=== PATIENT | male | born 1980 | race Caucasian/White ===

== ENCOUNTER 2023-08-04 13:02 | Emergency (ER) | payer BC, SELFPAY ==
--- NOTE | ~2023-08-04 | CT_ITS ---
CT of the Abdomen and Pelvis: Indication: Abdominal pain Technique: 2.5 mm axial scans were obtained through the abdomen and pelvis following intravenous adm inistration of 100 cc of Omnipaque 350. Dose reduction technique was used on this scan by utilizing a utomated exposure control and iterative reconstruction technique. The dose-length product (DLP) was 1 683.84 mGy-cm. Findings: Scans through the lung bases are unremarkable. The liver, spleen, pancreas, adrenals and kidneys are within normal limits. Multiple calcified gallst ones are present. No evidence of aortic aneurysm. No lymphadenopathy. There is wall thickening with extensive pericolonic inflammatory stranding at the mid to distal sigmo id colon, most compatible with acute diverticulitis. No abscess or free air seen. No bowel obstructio n evident. Images through the pelvis were performed. Urinary bladder unremarkable. No pelvic mass seen. No ascit es. Impression: Acute sigmoid diverticulitis, as detailed above. No abscess or free air. Cholelithiasis. Reviewed, dictated and finalized at [facility]. Impression: Acute sigmoid diverticulitis, as detailed above. No abscess or free air. Cholelithiasis.
[2023-08-04 13:07] VITALS: BP 156/91; PULSE 100; RESP 16; TEMP 36.5; O2SAT 100
[2023-08-04 13:39] LABS: Basophils Absolute Auto 0.1 K/mm3 (0.0-0.1); Basophils Percent Auto 0.7 % (0.2-1.2); Eosinophils Absolute Auto 0.4 K/mm3 (0-0.3); Eosinophils Percent Auto 3.4 % (0-4.4); Hematocrit 48.5 % (42.0-52.0); Hemoglobin 15.8 g/dL (14.0-18.0); Immature Granulocyte Absolute 0.06 K/mm3 (0.00-0.031); Immature Granulocyte Percent A 0.5 % (0-0.5); Lymphocytes Absolute Auto 1.29 K/mm3 (0.9-3.2); Lymphocytes Percent Auto 9.9 % (18.3-44.2); Mean Corpuscular HGB Conc 32.6 g/dl (32-36); Mean Corpuscular Volume 92.2 fl (80-100); Mean Platelet Volume 9.7 fl (7.4-10.4); Monocytes Absolute Auto 1.3 K/mm3 (0.1-0.6); Monocytes Percent Auto 9.9 % (2.6-8.5); Neutrophils Absolute Auto 9.9 K/mm3 (1.3-6.7); Neutrophils Percent Auto 75.6 % (45.5-73.1); Platelet Count Result 265 k/mm3 (150-375); Red Blood Count 5.26 M/mm3 (4.6-6.20); Red Cell Distribution Width 13.3 % (11.5-14.5)
[2023-08-04 13:49] LABS: Appearance Urine Clear (Clear); Bacteria Urine None Seen /hpf; Bilirubin Urine Negative (Negative); Blood Urine 1+ (Negative); Color Urine Yellow (Yellow); Glucose Urine UA Negative (Negative); Ketones Urine Negative (Negative); Leukocyte Esterase Ur Negative LEU/UL (Negative); Nitrate Urine Negative (Negative); Non Pathogenic Casts 0-2; Protein Urine Negative (Negative); Specific Grav Ur 1.026 (1.001-1.035); Squamous Epithelial Cell Urine None Seen /hpf (Few); WBC Urine 0-5 /hpf (0-3)
[2023-08-04 13:50] LABS: Alanine Aminotransferase 20 U/L (6-50); Albumin Level 4.5 g/dL (3.5-5.1); Alkaline Phosphatase 55 U/L (38-126); Anion Gap 6 mmol/L (4-12); Aspartate Amino Transferase 21 U/L (17-59); Bilirubin,Total 0.8 mg/dL (0.2-1.3); Blood Urea Nitrogen 19 mg/dL (9-20); Calcium 9.7 mg/dL (8.4-10.2); Carbon Dioxide 26 mmol/L (22-30); Chloride 108 mmol/L (98-107); Estimated CRCL calculation 121 ml/min; Estimated Glomerular Filt Rate > 60; Glucose 94 mg/dL (65-110); Lactic Acid Reflex 0.9 mmol/L (0.7-2.0); Lipase 118 U/L (23-300); Sodium 140 mmol/L (137-145)
[2023-08-04 13:55] LABS: Add Urine Microscopic? YES
--- NOTE | 2023-08-04 13:59 | ED.ABDPAIN ---
HPI - Abdominal Pain General Chief Complaint: Abdominal Pain Stated Complaint: abdominal pain/fever Time Seen by Provider: 08/04/23 13:34 History of Present Illness HPI narrative: This is a 42-year-old male, with no significant past medical history, presents emergency department complaining of lower abdominal pain for the past 4 days. Patient describes the pain as sharp and intermittent, at baseline 3/10 and at maximum 10/10. He states he has had 1 episode of pain like this before with that worsened and resolved without intervention. He states he is able to pass gas and stool without blood. He denies vomiting though has some nausea that improved with over the counter soft treatment. He has no other complaints at this time. Related Data Allergies Allergy/AdvReac Type Severity Reaction Status Date / Time No Known Allergies Allergy Verified 08/04/23 13:28 Review of Systems Review of Systems: All systems reviewed & are unremarkable except as noted in HPI and below (HPI) PMFSH Family History Family History Father Throat cancer Mother Breast cancer Social History Social History Smoking status: Current every day smoker Tobacco type: e-cigarettes/vaping Alcohol intake: never Substance use: never Substance use type: does not use Do You Feel Safe in your Home?: Yes Lack of Transportation: No Lack of Food: Never True Current Housing: I Have Housing Concerned About Future Housing: No Difficulty Paying Gas/Electric Bills: No Difficulty Paying for Meds: No Currently Unemployed: No Education: Trade/Vocational Certificate Difficulty w/ Childcare or Family Care: No Living arrangements: with family Occupation/Education: occupation Gender identity (if verbalized by the patient): Male Sexual Orientation (if Verbalized by the Patient): Straight or Heterosexual Exam Narrative: GENERAL: Well-developed, well-nourished, and in no acute distress. HEAD: Normocephalic, atraumatic. EYES: PERRLA and EOMI. CHEST: Clear to auscultation. No respiratory distress. No wheezes rales or rhonchi HEART: Regular rate and rhythm. No murmur heard. Normal peripheral pulses. ABDOMEN: Soft, tender to palpation in the lower abdomen with passive guarding though no rebound, nondistended, normal active bowel sounds. EXTREMITIES: Normal range of motion. No edema. SKIN: Warm, dry, no rash. NEURO: Alert and oriented x3. No focal deficit. Moving all 4 limbs spontaneously PSYCH: Normal mood and affect. Course Course Emergency Course: 14:45 - CBC demonstrates elevated white blood cell count of 13 with neutrophils of 75.6%. Chemistries demonstrate slightly elevated chloride of 108 but otherwise unremarkable. UA demonstrates mild hematuria with RBCs of 11-20. CT abdomen pelvis demonstrates wall thickening with extensive pericolonic inflammatory stranding at the mid to distal sigmoid colon, most compatible with acute diverticulitis. I discussed these findings with the patient and discussed treatment options including admission for IV antibiotics (considering the extent of colon involvement) verses oral antibiotics and outpatient follow-up. The patient prefers to be discharged. He politely declined narcotic pain medications. Discussed return and emergency precautions including signs/symptoms of acute abdomen intractable vomiting. The patient voiced understanding and agreement with the plan. All questions answered to his satisfaction. Vital Signs Vital signs: Vital Signs Temperature 97.7 F 08/04/23 13:07 Pulse Rate 100 08/04/23 13:07 Respiratory Rate 16 08/04/23 13:07 Blood Pressure 156/91 H 08/04/23 13:07 Pulse Oximetry 100 08/04/23 13:07 Temperature 97.7 F 08/04/23 13:07 Pulse Rate 64 08/04/23 14:30 Respiratory Rate 18 08/04/23 14:30 Blood Pressure 146/77 H 08/04/23 14:30 Pulse
[2023-08-04] MEDS: ACETAMINOPHEN 500 MG TABLET 1000 MG PO (14:21)
[2023-08-04] MEDS: SODIUM CHLORIDE 0.9% IV 1,000 ML 999 ML IV CONT (14:21)
[2023-08-04] MEDS: ONDANSETRON INJ 4 MG/2 ML VIAL IV PUSH (14:21)
[2023-08-04 14:30] VITALS: BP 146/77; PULSE 64; RESP 18; O2SAT 97
== END 2023-08-04 14:58 | disposition home or self-care (01) ==
PROVIDERS: Emergency Medicine; Emergency Provider Preventive Medicine Aerospace Medicine; PCP Family Medicine
DX: K57.32 Diverticulitis of large intestine without perforation or abscess without bleeding (principal); K80.20 Calculus of gallbladder without cholecystitis without obstruction; F17.290 Nicotine dependence, other tobacco product, uncomplicated
CPT/HCPCS: 36415; 74177; 80053; 81001; 83605; 83690; 85025; 96374; 99284; A9270; J2405; J7030; Q9967

== ENCOUNTER 2023-08-10 14:39 | Emergency (ER) | payer BC, SELFPAY ==
--- NOTE | ~2023-08-10 | CT_ITS ---
EXAMINATION: CT abdomen pelvis wo con DATE: 08/10/2023 16:32 INDICATION: Left lower quadrant abdominal pain. TECHNIQUE: Computed tomography (CT) of the abdomen and pelvis was performed without intravenous contr ast. Automated exposure control and iterative reconstruction technique were employed. The dose-length product was 1449.87 mGy-cm. COMPARISON: CT abdomen and pelvis 08/04/2023 FINDINGS: The visualized portions of the lung bases are clear without pneumonia or pleural effusion. The heart size is normal. No pericardial effusion. The liver and spleen are normal. There are gallsto emma in the gallbladder. Gallbladder distention is likely secondary to fasting. The pancreas, adrenal glands, and kidneys are normal. There is no urolithiasis. There are scattered diverticula in the colo n. There is wall thickening of the sigmoid colon with surrounding fat stranding, consistent with dive rticulitis. There are no dilated loops of bowel. The appendix is normal. There are no pathologically enlarged lymph nodes. There is no free intraperitoneal fluid. There is mild chronic anterior wedging of multiple thoracic vertebral bodies. There is severe thoracic spondylosis and mild lumbar spondylos is. IMPRESSION: 1. Stable sigmoid diverticulitis. No perforation or abscess. Reviewed, dictated and finalized at location E.
[2023-08-10 14:41] VITALS: BP 158/89; PULSE 97; RESP 18; TEMP 36.5; O2SAT 99
--- NOTE | 2023-08-10 15:54 | ED.RECABL ---
HPI - Recheck/Abnormal Lab/Rx General Chief Complaint: Abdominal Pain Stated Complaint: ABN labs Time Seen by Provider: 08/10/23 15:35 History of Present Illness HPI narrative: 42-year-old male presents to the emergency room for evaluation of diverticulitis. Patient was here 5 days ago for left lower quadrant abdominal pain, he he was diagnosed with uncomplicated diverticulitis and sent home with Christinaro and Flagrosemary. Patient follow-up with his primary care doctor 2 days ago and was told that if his WBC count was greater than 13 he needed to come straight to the emergency room for IV antibiotics. Patient's WBC count was 12.8, and he was still instructed to come here to the ER for further evaluation. Patient states that his pain has improved significantly, and is taking oral fluids and food. Related Data Allergies Allergy/AdvReac Type Severity Reaction Status Date / Time No Known Allergies Allergy Verified 08/09/23 10:07 Review of Systems Review of Systems: ROS unremarkable except for stated in the HPI [facility] Family History Family History Father Throat cancer Mother Breast cancer Social History Social History Smoking status: Current every day smoker Tobacco type: e-cigarettes/vaping Alcohol intake: never Substance use: never Substance use type: does not use Do You Feel Safe in your Home?: Yes Lack of Transportation: No Lack of Food: Never True Current Housing: I Have Housing Concerned About Future Housing: No Difficulty Paying Gas/Electric Bills: No Difficulty Paying for Meds: No Currently Unemployed: No Education: Trade/Vocational Certificate Difficulty w/ Childcare or Family Care: No Living arrangements: with family Occupation/Education: occupation Gender identity (if verbalized by the patient): Male Sexual Orientation (if Verbalized by the Patient): Straight or Heterosexual Exam Narrative: GENERAL: Well-appearing, well-nourished, no physical limitations, and in no acute distress. HEAD: Normocephalic, atraumatic. EYES: Conjunctivae normal, PERRLA and EOMI. CHEST: Clear to auscultation. No respiratory distress. No wheezes rales or rhonchi. HEART: Regular rate and rhythm. No murmur heard. Normal peripheral pulses. ABDOMEN: Soft, LLQ tenderness, nondistended, normal active bowel sounds. BACK: No CVA tenderness EXTREMITIES: Normal range of motion. No edema. No clubbing or cyanosis SKIN: Warm, dry, no rash. No noted wounds NEURO: No focal deficits. Alert and oriented x3. MAEW. CN's II-XI intact bilaterally, normal gait PSYCH: Cooperative. Normal mood and affect. Course Vital Signs Vital signs: Vital Signs Temperature 36.5 C 08/10/23 14:41 Pulse Rate 97 08/10/23 14:41 Respiratory Rate 18 08/10/23 14:41 Blood Pressure 158/89 H 08/10/23 14:41 Pulse Oximetry 99 08/10/23 14:41 Oxygen Delivery Room Air 08/10/23 14:41 Temperature 36.5 C 08/10/23 14:41 Pulse Rate 97 08/10/23 14:41 Respiratory Rate 18 08/10/23 14:41 Blood Pressure 158/89 H 08/10/23 14:41 Pulse Oximetry 99 08/10/23 14:41 Oxygen Delivery Room Air 08/10/23 14:41 MDM - Recheck/Abnormal Lab/Rx Lab Data 08/10/23 15:56 08/10/23 15:56 Labs: Lab Results 08/10/23 08/10/23 Range/Units 15:56 16:20 WBC 12.8 H (4.5-10.0) K/mm3 RBC 4.36 L (4.6-6.20) M/mm3 Hgb 13.2 L (14.0-18.0) g/dL Hct 39.7 L (42.0-52.0) % MCV 91.1 (80-100) fl MCH 30.3 (26-34) pg MCHC 33.2 (32-36) g/dl RDW 13.4 (11.5-14.5) % Plt Count 360 (150-375) k/mm3 MPV 8.8 (7.4-10.4) fl Immature Gran % (Auto) 0.8 H (0-0.5) % Neut % (Auto) 74.0 H (45.5-73.1) % Lymph % (Auto) 12.5 L (18.3-44.2) % Ford % (Auto) 8.8 H (2.6-8.5) % Eos % (Auto) 3.3 (0-4.4) % Baso % (Auto) 0.6 (0.2-1.2) % Lymph # (Auto)
[2023-08-10 16:01] LABS: Basophils Absolute Auto 0.1 K/mm3 (0.0-0.1); Basophils Percent Auto 0.6 % (0.2-1.2); Eosinophils Absolute Auto 0.4 K/mm3 (0-0.3); Eosinophils Percent Auto 3.3 % (0-4.4); Hematocrit 39.7 % (42.0-52.0); Hemoglobin 13.2 g/dL (14.0-18.0); Immature Granulocyte Percent A 0.8 % (0-0.5); Lymphocytes Percent Auto 12.5 % (18.3-44.2); Mean Corpuscular HGB Conc 33.2 g/dl (32-36); Mean Corpuscular Hemoglobin 30.3 pg (26-34); Mean Corpuscular Volume 91.1 fl (80-100); Mean Platelet Volume 8.8 fl (7.4-10.4); Monocytes Absolute Auto 1.1 K/mm3 (0.1-0.6); Monocytes Percent Auto 8.8 % (2.6-8.5); Neutrophils Absolute Auto 9.5 K/mm3 (1.3-6.7); Platelet Count Result 360 k/mm3 (150-375); Red Blood Count 4.36 M/mm3 (4.6-6.20); Red Cell Distribution Width 13.4 % (11.5-14.5); White Blood Count 12.8 K/mm3 (4.5-10.0)
[2023-08-10 16:14] LABS: Alanine Aminotransferase 18 U/L (6-50); Albumin Level 3.9 g/dL (3.5-5.1); Alkaline Phosphatase 48 U/L (38-126); Anion Gap 5 mmol/L (4-12); Aspartate Amino Transferase 20 U/L (17-59); Bilirubin,Total 0.4 mg/dL (0.2-1.3); Blood Urea Nitrogen 17 mg/dL (9-20); Calcium 8.9 mg/dL (8.4-10.2); Carbon Dioxide 29 mmol/L (22-30); Chloride 102 mmol/L (98-107); Estimated CRCL calculation 121 ml/min; Estimated Glomerular Filt Rate > 60; Glucose 109 mg/dL (65-110); Potassium 4.2 mmol/L (3.4-5.0); Sodium 136 mmol/L (137-145)
[2023-08-10 17:02] VITALS: BP 142/80; PULSE 80; RESP 16; TEMP 36.6; O2SAT 100
[2023-08-10 17:12] LABS: Lactic Acid Reflex < 0.5 mmol/L (0.7-2.0)
== END 2023-08-10 17:07 | disposition home or self-care (01) ==
PROVIDERS: Emergency Provider Nurse Practitioner Family; PCP Family Medicine
DX: K57.32 Diverticulitis of large intestine without perforation or abscess without bleeding (principal); F17.290 Nicotine dependence, other tobacco product, uncomplicated
CPT/HCPCS: 36415; 74176; 80053; 83605; 85025; 99284

== ENCOUNTER 2024-01-08 00:52 | Day surgery (SDC) | payer BC, SELFPAY ==
[2023-12-19 15:30] VITALS: BMI 37.0
[2024-01-08 09:51] VITALS: BP 134/80; PULSE 92; RESP 18; TEMP 36.2; O2SAT 99
--- NOTE | 2024-01-08 09:58 | P.PNAN_ITS ---
Anes - Initial Pre Proc Eval Procedure: Operation Date: 01/08/24 11:00 Proposed Procedures p Colonoscopy - Jordan Fernández MD Date/Time: 01/08/24 09:58 Surgeon: Jordan Fernández MD Pre Op Diagnosis: Diverticulitis, diarrhea Patient Data Age: 43 Gender: M Height: 1.75 m Weight: 119.2 kg Last Vital Signs Temp 36.2 C L 01/08/24 09:51 Pulse 92 01/08/24 09:51 Resp 18 01/08/24 09:51 BP 134/80 01/08/24 09:51 Pulse Ox 99 01/08/24 09:51 O2 Del Method Room Air 01/08/24 09:51 Allergies Allergy/AdvReac Type Severity Reaction Status Date / Time No Known Allergies Allergy Verified 01/08/24 09:51 Home Medications Medication Instructions Recorded Confirmed Type hydrocodone 7.5 mg-acetaminophen 1 tablet PO Q4H PRN pain #40 tabs 08/09/23 01/08/24 Rx 325 mg tablet ondansetron 4 mg disintegrating 4 mg PO Q6H PRN nausea and 08/09/23 01/08/24 Rx tablet vomiting #30 tabs dicyclomine 10 mg capsule 10 mg PO QID PRN stomach cramps 12/19/23 01/08/24 History Patient hx anesthesia problems: none Family hx anesthesia problems: none Results Review: All pre-operative results and documents have been reviewed as part of the pre- operative evaluation. [facility] Past Medical History Medical History (Updated 01/08/24 @ 09:58 by Christopher Maurer MD) Obesity Family History Family History Father Throat cancer Mother Breast cancer Social History Social History Smoking status: Current every day smoker Tobacco type: e-cigarettes/vaping Alcohol intake: never Substance use: never Substance use type: does not use Do You Feel Safe in your Home?: Yes Lack of Transportation: No Lack of Food: Never True Current Housing: I Have Housing Concerned About Future Housing: No Difficulty Paying Gas/Electric Bills: No Difficulty Paying for Meds: No Currently Unemployed: No Education: Trade/Vocational Certificate Difficulty w/ Childcare or Family Care: No Living arrangements: with family Occupation/Education: occupation Gender identity (if verbalized by the patient): Male Sexual Orientation (if Verbalized by the Patient): Straight or Heterosexual Spiritual care concerns: No Anes - Eval Final PreProcedure Day of Procedure 01/08/24 09:58 Patient weight: obese Heart: regular rate and rhythm Lungs: clear to auscultation Airway: Mallampati scale class II Neurological: alert and oriented Last oral intake: >/= 8 hours ASA classification: II Emergent: no Anesthetic plan: proceed Anesthesia type and monitoring: general GIVS and standard monitoring Results Review: All pre-operative results and documents have been reviewed as part of the pre- operative evaluation. Informed Consent: The patient's anesthetic plan and its attendant risks and benefits were discussed with the patient/family/POA. Questions were solicited and answers provided to the satisfaction of the patient/family/POA.
[2024-01-08] MEDS: LACTATED RINGERS 1,000 ML 150 ML IV CONT (10:02)
--- NOTE | 2024-01-08 10:43 | P.HP_ITS ---
History of Present Illness History of Present Illness Consent: Risks, benefits, and alternatives have been discussed and questions answered. Patient agrees to proceed with procedure. Chief complaint: Diverticulitis, diarrhea Narrative: Christopher Giron is a 43 year old male with h/o diverticulitis, now asymptomatic, never had colonoscopy Review of Systems Review of Systems: All systems reviewed & are unremarkable except as noted in HPI and below PMFSH Past Medical History Medical History (Updated 01/08/24 @ 10:43 by Jordan Fernández MD) History of diverticulitis of colon Obesity Family History Family History Father Throat cancer Mother Breast cancer Social History Social History Smoking status: Current every day smoker Tobacco type: e-cigarettes/vaping Alcohol intake: never Substance use: never Substance use type: does not use Do You Feel Safe in your Home?: Yes Lack of Transportation: No Lack of Food: Never True Current Housing: I Have Housing Concerned About Future Housing: No Difficulty Paying Gas/Electric Bills: No Difficulty Paying for Meds: No Currently Unemployed: No Education: Trade/Vocational Certificate Difficulty w/ Childcare or Family Care: No Living arrangements: with family Occupation/Education: occupation Gender identity (if verbalized by the patient): Male Sexual Orientation (if Verbalized by the Patient): Straight or Heterosexual Spiritual care concerns: No Meds Home Medications and Allergies Home Medications Medication Instructions Recorded Confirmed Type hydrocodone 7.5 mg-acetaminophen 1 tablet PO Q4H PRN pain #40 tabs 08/09/23 01/08/24 Rx 325 mg tablet ondansetron 4 mg disintegrating 4 mg PO Q6H PRN nausea and 08/09/23 01/08/24 Rx tablet vomiting #30 tabs dicyclomine 10 mg capsule 10 mg PO QID PRN stomach cramps 12/19/23 01/08/24 His tory Allergies Allergy/AdvReac Type Severity Reaction Status Date / Time No Known Allergies Allergy Verified 01/08/24 09:51 Vital Signs Vital Signs - 24 hr 01/08/24 09:51 Temperature 97.2 F L Pulse Rate 92 Respiratory Rate 18 Blood Pressure 134/80 Pulse Oximetry 99 Oxygen Delivery Room Air Exam Const: General: comfortable and no acute distress HENMT: Face/Nose/Sinus: Normal nares present Eyes: General: appearance normal, both eyes and all related structures Neck: Neck: no JVD Resp: Auscultation: clear to auscultation bilaterally Cardio: Rate: regular rate Rhythm: regular rhythm GI: Inspection: non-distended GI Palp: Yes Soft to palpation Skin: General skin exam: normal color Neuro: General: gait normal Speech: normal speech Extrem: General: normal to inspection Psych: Mental Status: mental status grossly normal Assessment and Plan Assessment and plan (1) History of diverticulitis of colon: Code(s): Z87.19 - Personal history of other diseases of the digestive system Status: Acute Assessment and Plan: colonoscopy
[2024-01-08 11:06] VITALS: BP 102/67; PULSE 88; RESP 24; O2SAT 97
[2024-01-08 11:16] VITALS: BP 106/76; PULSE 82; RESP 16; O2SAT 100
[2024-01-08 11:26] VITALS: BP 121/72; PULSE 81; RESP 19; O2SAT 100
== END 2024-01-08 11:34 | disposition home or self-care (01) ==
PROVIDERS: PCP Family Medicine; Referring Provider Nurse Practitioner Family; Visit Provider Internal Medicine Gastroenterology
PROC: 0DJD8ZZ Inspection of Lower Intestinal Tract, Via Natural or Artificial Opening Endoscopic (ICD-10-PCS; CPT 45378; principal; 2024-01-08 11:00)
DX: Z12.11 Encounter for screening for malignant neoplasm of colon (principal); K63.5 Polyp of colon; K64.8 Other hemorrhoids; K57.30 Diverticulosis of large intestine without perforation or abscess without bleeding; F17.290 Nicotine dependence, other tobacco product, uncomplicated; E66.9 Obesity, unspecified; Z68.38 Body mass index [BMI] 38.0-38.9, adult; Z79.891 Long term (current) use of opiate analgesic; Z87.19 Personal history of other diseases of the digestive system; Z80.3 Family history of malignant neoplasm of breast; Z80.1 Family history of malignant neoplasm of trachea, bronchus and lung
CPT/HCPCS: 45385; 45382; 88305; J2003; J2704; J7120

== ENCOUNTER 2025-01-02 06:54 | Inpatient (IN) | payer BC, SELFPAY ==
--- NOTE | ~2025-01-02 | CT_ITS ---
EXAMINATION: CT abdomen pelvis w con DATE: 01/02/2025 11:35 INDICATION: Abdominal pain TECHNIQUE: Computed tomography (CT) of the abdomen and pelvis was performed with 100 mL Omnipaque-350 intravenous contrast. Automated exposure control and iterative reconstruction technique were employed. The dose-length product was 1401.12 mGy-cm. COMPARISON: 08/10/2023 FINDINGS: Lung bases are clear. Heart size is normal. No pericardial or pleural effusion. Numerous calcified gallstones layering in the dependent aspect of the otherwise normal-appearing gallbladder. Liver is normal. No intra or extra hepatic biliary ductal dilation. Pancreas, spleen, bilateral adrenal glands and kidneys are normal. Mild scattered diverticulosis. Again seen is prominent wall thickening along the sigmoid colon with surrounding inflammatory stranding suspicious for diverticulitis. Minimal likely reactive free fluid at the caudal aspect of the right paracolic gutter. No bowel obstruction. Normal appendix. Bladder is normal. No abscess or free intraperitoneal gas. No pathologically enlarged abdo nic or pelvic lymphadenopathy. Moderate lower thoracic spondylosis with chronic appearing mild anterior wedging at T8 and T9. Mild lumbar spondylosis. IMPRESSION: 1. Similar appearance of prominent wall thickening and surrounding inflammatory stranding at the mid sigmoid colon most suspicious for radiographically uncomplicated diverticulitis. Differential would however also include colon cancer and if not recently performed would recommend follow-up colonoscopy when clinically improved. 2. Cholelithiasis. Reviewed, dictated and finalized at location A. IMPRESSION: 1. Similar appearance of prominent wall thickening and surrounding inflammatory stranding at the mid sigmoid colon most suspicious for radiographically uncomp licated diverticulitis. Differential would however also include colon cancer an d if not recently performed would recommend follow-up colonoscopy when clinical ly improved. 2. Cholelithiasis.
[2025-01-02 07:12] VITALS: BP 145/87; PULSE 111; RESP 18; TEMP 37.1; O2SAT 97
[2025-01-02 08:19] LABS: Alanine Aminotransferase 21 U/L (6-50); Albumin Level 4.2 g/dL (3.5-5.1); Alkaline Phosphatase 40 U/L (38-126); Anion Gap 8 mmol/L (4-12); Aspartate Amino Transferase 43 U/L (17-59); Bilirubin,Total 0.9 mg/dL (0.2-1.3); Blood Urea Nitrogen 17 mg/dL (9-20); Calcium 8.9 mg/dL (8.4-10.2); Carbon Dioxide 25 mmol/L (22-30); Chloride 104 mmol/L (98-107); Estimated Glomerular Filt Rate > 60; Glucose 98 mg/dL (65-110); Lipase 1543 U/L (23-300); Potassium 5.0 mmol/L (3.4-5.0); Sodium 137 mmol/L (137-145); Total Protein 8.3 g/dL (6.3-8.2)
[2025-01-02 08:56] LABS: Hematocrit 47.3 % (42.0-52.0); Hemoglobin 16.0 g/dL (14.0-18.0); Immature Granulocyte Percent A 0.3 % (0-0.5); Lymphocytes Absolute Auto 1.07 K/mm3 (0.9-3.2); Mean Corpuscular HGB Conc 33.8 g/dl (32-36); Mean Corpuscular Hemoglobin 30.9 pg (26-34); Mean Corpuscular Volume 91.3 fl (80-100); Nucleated Red Blood Cells Absolute Auto 0.000 K/mm3 (0.0-0.012); Nucleated Red Blood Cells Perc 0.0 % (0.0-0.2); Platelet Count Result 313 k/mm3 (150-375); Red Blood Count 5.18 M/mm3 (4.6-6.20); White Blood Count 12.4 K/mm3 (4.5-10.0)
[2025-01-02 09:30] VITALS: BP 124/57; PULSE 87; RESP 12; TEMP 36.4; O2SAT 100
--- NOTE | 2025-01-02 11:19 | ED_ITS ---
HPI - General Adult General Chief complaint: Abdominal Pain Stated complaint: Diverticulitis flare up Bilat lower abd pain Time Seen by Provider: 01/02/25 10:44 History of Present Illness HPI narrative: Christopher Giron is a 44-year-old male who presents with reports of having history of diverticulitis frequently. He states that 11 days ago he felt like he was having another diverticulitis flare he went to an urgent care and was started on Cipro and Flagyl which he has been taking since then. He presents today reports that he is feeling much worse increased lower abdominal pain nausea. He states that he is having very little bowel movements and passing mucus bowel movements. 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 12/19/23 01/08/24 Unknown History Allergies Allergy/AdvReac Type Severity Reaction Status Date / Time No Known Allergies Allergy Verified 01/02/25 06:56 Review of Systems 2 Review of Systems: All systems reviewed & are unremarkable except as noted in HPI and below PMFSH Past Medical History Medical History History of diverticulitis of colon Obesity Family History Family History Father Throat cancer Mother Breast cancer Social History Social History Smoking status: Current every day smoker Tobacco type: e-cigarettes/vaping Alcohol intake: never Substance use: never Substance use type: does not use Do You Feel Safe in your Home?: Yes Lack of Transportation: No Lack of Food: Never True Current Housing: I Have Housing Concerned About Future Housing: No Difficulty Paying Gas/Electric Bills: No Difficulty Paying for Meds: No Currently Unemployed: No Education: Trade/Vocational Certificate Difficulty w/ Childcare or Family Care: No Living arrangements: with family Occupation/Education: occupation Gender identity (if verbalized by the patient): Male Sexual Orientation (if Verbalized by the Patient): Straight or Heterosexual Spiritual care concerns: No Exam 2 Narrative: GENERAL: Appears to not feel well, no acute distress. HEAD: Normocephalic, atraumatic. EYES: PERRLA and EOMI. ENT: Nares clear, no rhinorrhea or epistaxis. Mucous membranes moist. Oropharynx without tonsillar hypertrophy exudate or other lesions. Bilateral TMs pearly castellanos nonbulging NECK: Supple. No adenopathy or masses. No carotid bruits or JVD CHEST: Clear to auscultation. No respiratory distress. No wheezes rales or rhonchi HEART: Regular rate and rhythm. No murmur heard. Normal peripheral pulses. ABDOMEN: Soft, nondistended, normal active bowel sounds, positive pain to the right lower quadrant with palpation EXTREMITIES: Normal range of motion. No edema. SKIN: Warm, dry, no rash. NEURO: No focal deficits. Alert and oriented x3. PSYCH: Normal mood and affect. Course Vital Signs Vital signs: Vital Signs Temperature 37.1 C 01/02/25 07:12 Pulse Rate 111 H 01/02/25 07:12 Respiratory Rate 18 01/02/25 07:12 Blood Pressure 145/87 H 01/02/25 07:12 Pulse Oximetry 97 01/02/25 07:12 Oxygen Delivery Room Air 01/02/25 07:12 Temperature 36.2 C L 01/02/25 14:08 Pulse Rate 85 01/02/25 14:08 Respiratory Rate 20 01/02/25 14:08 Blood Pressure 116/69 01/02/25 14:08 Pulse Oximetry 97 01/02/25 14:08 Oxygen Delivery Room Air 01/02/25 07:12 Medical Decision Making [facility] Narrative Medical decision making narrative: 44-year-old male with history of acute diverticulitis he has been on antibiotics for 11 days who presents with having increased lower abdominal pain, nausea and small mucousy bowel movements. On exam he is noted to right lower quadrant pain with palpation, he also states that he she woke up in a sweat but did not think that he had a fever. Concern for acute appendicitis, perforated bowel, acute diverticulitis, small- bowel obstruction Plan to check labs including CT and treat his pain in start IV fluids CBC leukocytosis 12.4, hemodynamically stable CMP unremarkable, CRP 4.7, lipase 1543, lactate 0.6 UA 1+ protein, 1+ ketones CT scan1. Similar appearance of prominent wall thickening and surrounding inflammatory stranding at the mid sigmoid colon most suspicious for radiographically uncomplicated diverticulitis. Differential would however also include colon cancer and if not recently performed would recommend follow-up colonoscopy when clinically improved. 2. Cholelithiasis. With patient being on p.o. antibiotics for 11 days and feeling worse with increased pain and the findings on the CT scan and lab work recommend admitting for IV fluids, pain control and IV antibiotics and further evaluation for the differential the CT scan. I updated patient on the findings he is agreeable to this plan denies anything further at this time. I talked with hospitalist Michelle accepts admission at this time. Medical Records Medical records reviewed: Yes I reviewed the external patient's medical records. Vital Signs Vital Signs: Vital Signs Temperature 37.1 C 01/02/25 07:12 Pulse Rate 111 H 01/02/25 07:12 Respiratory Rate 18 01/02/25 07:12 Blood Pressure 145/87 H 01/02/25 07:12 Pulse Oximetry 97 01/02/25 07:12 Oxygen Delivery Room Air 01/02/25 07:12 Temperature 36.2 C L 01/02/25 14:08 Pulse Rate 85 01/02/25 14:08 Respiratory Rate 20 01/02/25 14:08 Blood Pressure 116/69 01/02/25 14:08 Pulse Oximetry 97 01/02/25 14:08 Oxygen Delivery Room Air 01/02/25 07:12 vitals reviewed Lab Data Lab results reviewed: Yes I reviewed the patient's lab results. 01/02/25 08:47 01/02/25 07:46 Labs: Lab Results 01/02/25 01/02/25 01/02/25 Range/Units 07:46 08:47 10:57 WBC 12.4 H (4.5-10.0) K/mm3 RBC 5.18 (4.6-6.20) M/mm3 Hgb 16.0 (14.0-18.0) g/dL Hct 47.3 (42.0-52.0) % MCV 91.3 (80-100) fl MCH 30.9 (26-34) pg MCHC 33.8 (32-36) g/dl RDW 12.4 (11.5-14.5) % Plt Count 313 (150-375) k/mm3 MPV 8.8 (7.4-10.4) fl Immature Gran % (Auto) 0.3 (0-0.5) % Neut % (Auto) 81.0 H (45.5-73.1) % Lymph % (Auto) 8.6 L (18.3-44.2) % [place] % (Auto) 6.7 (2.6-8.5) % Eos % (Auto) 2.6 (0-4.4) % Baso % (Auto) 0.8 (0.2-1.2) % Lymph # (Auto) 1.07 (0.9-3.2) K/mm3 [place] # (Auto) 0.8 H (0.1-0.6) K/mm3 Eos # (Auto) 0.3 (0-0.3) K/mm3 Baso # (Auto) 0.1 (0.0-0.1) K/mm3 Abs Immat Gran (auto) 0.04 H (0.00-0.031) K/mm3 Absolute Neuts (auto) 10.1 H (1.3-6.7) K/mm3 Absolute Nucleated RBC 0.000 (0.0-0.012) K/mm3 Nucleated RBC % 0.0 (0.0-0.2) % Sodium 137 (137-145) mmol/L Potassium 5.0 (3.4-5.0) mmol/L Chloride 104 (98-107) mmol/L Carbon Dioxide 25 (22-30) mmol/L Anion Gap 8 (4-12) mmol/L BUN 17 (9-20) mg/dL Creatinine 1.05 (0.7-1.3) mg/dL Estim Creat Clear Calc Not Reportable Estimated GFR > 60 (59 - ) Glucose 98 (65-110) mg/dL Calcium 8.9 (8.4-10.2) mg/dL Total Bilirubin 0.9 (0.2-1.3) mg/dL AST 43 (17-59) U/L ALT 21 (6-50) U/L Alkaline Phosphatase 40 (38-126) U/L Total Protein 8.3 H (6.3-8.2) g/dL Albumin 4.2 (3.5-5.1) g/dL Lipase 1543 H (23-300) U/L Urine Color Yellow (Yellow) Urine Appearance Clear (Clear) Urine pH 7.0 (5.0-9.0) Ur Specific [place] 1.028 (1.001-1.035) Urine Protein 1+ H (Negative) mg/dL Urine Glucose (UA) Negative (Negative) mg/dL Urine Ketones 1+ H (Negative) mg/dL Ur Blood (Man) Negative (Negative) Urine Nitrate Negative (Negative) Urine Bilirubin Negative (Negative) Urine Urobilinogen 1.0 (<2.0) mg/dL Add Ur Microanalysis Reviewed Leukocyte Esterase Rfl Negative (Negative) AYSHA/UL Urine RBC 0-2 (0-2) /hpf Urine WBC 0-5 (0-3) /hpf Ur Squamous Epith Cells None seen (Few) /hpf Urine Bacteria None seen /hpf Urine Casts 3-5 Urine Mucus Present /lpf Imaging Data Radiologist's impression: Impressions Abdomen/Pelvis CT 01/02/25 11:49 IMPRESSION: 1. Similar appearance of prominent wall thickening and surrounding inflammatory stranding at the mid sigmoid colon most suspicious for radiographically uncomplicated diverticulitis. Differential would however also include colon cancer and if not recently performed would recommend follow-up colonoscopy when clinically improved. 2. Cholelithiasis. Discharge Plan Discharge Clinical Impression: Diverticulitis, Nausea, Dehydration, Elevated lipase Abdominal pain Qualifiers: Abdominal location: right lower quadrant Qualified Code(s): R10.31 - Right lower quadrant pain Patient Disposition: Still a Patient Condition: Stable
[2025-01-02 11:23] LABS: Add Urine Microscopic? YES; Appearance Urine Clear (Clear); Glucose Urine UA Negative (Negative); Leukocyte Esterase Ur Negative LEU/UL (Negative); Need Manual Microscopic Reviewed; Nitrate Urine Negative (Negative); Specific Grav Ur 1.028 (1.001-1.035)
[2025-01-02] MEDS: SODIUM CHLORIDE 0.9% IV 1,000 ML 999 ML IV CONT (11:23)
[2025-01-02] MEDS: MORPHINE SULFATE (*CRX) 4 MG/ML INJ 2 MG IV PUSH ×2 (11:24→20:20)
[2025-01-02] MEDS: KETOROLAC 30 MG/ML VIAL (*BKC) IV PUSH (11:24)
[2025-01-02] MEDS: FAMOTIDINE 20 MG/2 ML VIAL IV PUSH (11:24)
[2025-01-02] MEDS: ONDANSETRON INJ 4 MG/2 ML VIAL IV PUSH (11:25)
[2025-01-02 11:45] VITALS: BP 126/84; PULSE 91; RESP 14; O2SAT 98
[2025-01-02 11:52] VITALS: BP 146/87; PULSE 81; RESP 16; O2SAT 100
[2025-01-02 12:52] LABS: INR 1.1; Partial Thromboplastin Time 29.6 Seconds (22.3-36.8); Prothrombin Time 14.6 Seconds (11.1-14.7)
[2025-01-02 13:04] LABS: CRP 4.7 mg/dL (<1.0)
[2025-01-02] MEDS: cefTRIAXone 2 GM in SODIUM CHLORIDE 0.9% IV 100 ML 200 ML IVPB (13:22)
--- NOTE | 2025-01-02 13:37 | P.HP_ITS ---
H&P: HPI History of Present Illness Date/Time: 01/02/25 13:37 Chief Complaint: Abdominal pain Narrative: 44-year-old male with history of diverticulitis presents the hospital with acute abdominal pain. He states that he went to urgent care about 11 days ago and was started on Cipro and Flagyl. He states that he is now feeling worse having difficulties passing stool, nauseated and acute pain. Patient denies chronic alcohol use. Patient states that the pain is in his lower abdomen. Denied upper abdominal pain. Patient states that he has a family history of diverticulitis. He states that he was taking his antibiotics as directed. He denies other complaints denies fevers chills. ED shows leukocytosis at 12.4, lactic acid of 0.6 CRP of 4.7, lipase of 1543, abdomen pelvis CT shows Similar appearance of prominent wall thickening and surrounding inflammatory stranding at the mid sigmoid colon most suspicious for radiographically uncomplicated diverticulitis. Differential would however also include colon cancer and if not recently performed would recommend follow-up colonoscopy when clinically improved. Review of Systems Review of Systems: 12 systems were reviewed and are negativ e except for as per HPI. [facility] Past Medical History Medical History History of diverticulitis of colon Obesity Family History Family History Father Throat cancer Mother Breast cancer Social History Social History Smoking packs per day: 1 Smoking cigarettes per day: 20.0 Smoking status: Current every day smoker Tobacco type: e-cigarettes/vaping Smokeless tobacco user: chewing tobacco Alcohol intake: never Substance use: never Substance use type: does not use Do You Feel Safe in your Home?: Yes Lack of Transportation: No Lack of Food: Never True Current Housing: I Have Housing Concerned About Future Housing: No Difficulty Paying Gas/Electric Bills: No Difficulty Paying for Meds: No Currently Unemployed: No Education: Trade/Vocational Certificate Difficulty w/ Childcare or Family Care: No Living arrangements: with family Occupation/Education: occupation Gender identity (if verbalized by the patient): Male Sexual Orientation (if Verbalized by the Patient): Straight or Heterosexual Spiritual care concerns: No Meds Home Medications and Allergies Home Medications ?Medication ?Instructions ?Recorded ?Confirmed ?Type No Home Medications 01/02/25 01/02/25 H istory Allergies Allergy/AdvReac Type Severity Reaction Status Date / Time No Known Allergies Allergy Verified 01/02/25 06:56 Vital Signs Vital Signs - 24 hr 01/02/25 07:12 01/02/25 09:30 01/02/25 11:45 Temperature 98.7 F 97.6 F Pulse Rate 111 H 87 91 Respiratory Rate 18 12 14 Blood Pressure 145/87 H 124/57 L 126/84 Pulse Oximetry 97 100 98 Oxygen Delivery Room Air 01/02/25 11:52 Temperature Pulse Rate 81 Respiratory Rate 16 Blood Pressure 146/87 H Pulse Oximetry 100 Oxygen Delivery Exam Narrative: General: well appearing, appears stated age. HEENT: normocephalic, atraumatic. Mucous membranes moist. EOMI, PERRLA, bilateral sclera anicteric, no conjunctival injection. Neck supple without JVD, lymphadenopathy, or bruit. Respiratory: clear to ascultation bilaterally. No rales/rhonic/wheezes. Cardiovascular: Regular rate and rhythm, normal S1-S2 upon ascultation. No murmurs, rubs, or clicks. PMI is nondisplaced, capillary refill less than 3 second. Abdomen: Soft, round, no pulsatile masses, nondistended No rebound, no guarding. No CVA tenderness, no hepatosplenomegaly. Bowel sounds present to all four quadrants. No high pitch or tinkling sounds, resonant to percussion. Minimal tenderness to palpation Extremities: No cyanosis, clubbing, or edema present. Pulses are palpable 2/2. Active ROM to all four extremities. Neuro: Alert and orientated x 4. PERRLA. Cranial nerves 2-12 intact without focal deficit. Skin: Warm, dry, and intact, without rash, erythema, or lesion. Psych: pleasant, cooperative, normal speech, normal affect, no hallucinations, no dysarthia H&P: Results Labs Labs: Short CBC 01/02/25 Range/Units 08:47 WBC 12.4 H (4.5-10.0) K/mm3 Hgb 16.0 (14.0-18.0) g/dL Hct 47.3 (42.0-52.0) % Plt Count 313 (150-375) k/mm3 BMP 01/02/25 07:46 Sodium 137 Potassium 5.0 Chloride 104 Carbon Dioxide 25 BUN 17 Creatinine 1.05 Glucose 98 Calcium 8.9 Liver Function 01/02/25 Range/Units 07:46 Total Bilirubin 0.9 (0.2-1.3) mg/dL AST 43 (17-59) U/L ALT 21 (6-50) U/L Alkaline Phosphatase 40 (38-126) U/L Albumin 4.2 (3.5-5.1) g/dL Urine 01/02/25 Range/Units 10:57 Urine Color Yellow (Yellow) Urine Appearance Clear (Clear) Urine pH 7.0 (5.0-9.0) Ur Specific [place] 1.028 (1.001-1.035) Urine Protein 1+ H (Negative) mg/dL Urine Glucose (UA) Negative (Negative) mg/dL Assessment and Plan Assessment and plan (1) Diverticulitis: Code(s): K57.92 - Diverticulitis of intestine, part unspecified, without perforation or abscess without bleeding Status: Acute Assessment and Plan: CT showing Similar appearance of prominent wall thickening and surrounding inflammatory stranding at the mid sigmoid colon most suspicious for radiographically uncomplicated diverticulitis. Differential would however also include colon cancer and if not recently performed would recommend follow-up colonoscopy when clinically improved. Cholelithiasis. Surgery consulted NPO at midnight in case they want to do a procedure Blood cultures pending IVF Flagyl and Rocephin (2) Elevated lipase: Code(s): R74.8 - Abnormal levels of other serum enzymes Status: Acute Assessment and Plan: Normal pancreas on CT, patient denies upper abdominal pain LR at 200 Okay for clear liquids (3) Dehydration: Code(s): E86.0 - Dehydration Status: Acute Assessment and Plan: IVF Quality VTE Prophylaxis VTE prophylaxis: mechanical ordered If No VTE Prophylaxis Answer both mechanical and pharmacologic: Reason no pharmacologic proph: medical contraindication Hospitalist MIPS Advance Care Plan I have confirmed that the patient's Advanced Care Plan is present, code status is documented, or surrogate decision maker is listed in patient medical record.: Yes Medication Reconciliation I have utilized all available resources to obtain, update and review the patients current medications (includes all prescriptions, OTC, herbals, cannabis, and nutritional supplements).: Yes
[2025-01-02 14:08] VITALS: BP 116/69; PULSE 85; RESP 20; TEMP 36.2; O2SAT 97
[2025-01-02] MEDS: metroNIDAZOLE 500 MG/ISO 100ML 500 MG/100 ML BAG 100 MG IVPB (15:01)
[2025-01-02] MEDS: LACTATED RINGERS 1,000 ML 200 ML IV CONT ×2 (15:01→22:22)
--- NOTE | 2025-01-02 18:04 | ADMGEN ---
This patient, Christopher Giron, was admitted to 3 [facility] Surg Room 324-01. Patient/family oriented to hospital policies and general routines including ID bracelet, bed and alarms, visiting hours, pain management, procedures, bathroom and other care routines, personal items, smoking policy, room service/diet, and visiting hours. Information on how to activate the Rapid Response Team has been discussed. Patient/Family are encouraged to report perceived risks to care and to ask questions if they do not understand what they are told or what they should do.
[2025-01-02 18:12] VITALS: BMI 40.3
[2025-01-02] MEDS: HYDROcodone/acetaminophen (*CRX) 5-325 MG TABLET 1 TAB PO (18:17)
[2025-01-02] MEDS: SENNA/DOCUSATE SODIUM TABLET 1 TAB PO (20:19)
[2025-01-02 21:39] VITALS: BP 121/73; PULSE 87; RESP 20; TEMP 37.6; O2SAT 97
[2025-01-03] MEDS: MAG HYDROX/AL HYDROX/SIMETH 30 ML UDC PO (00:02)
[2025-01-03] MEDS: KETOROLAC 15 MG/ML VIAL (*BKC) IV PUSH ×5 (00:02→23:16)
[2025-01-03] MEDS: metroNIDAZOLE 500 MG/ISO 100ML 500 MG/100 ML BAG 100 MG IVPB ×3 (00:03→11:26)
[2025-01-03] MEDS: LACTATED RINGERS 1,000 ML 200 ML IV CONT ×4 (05:10→23:17)
[2025-01-03 06:00] VITALS: BP 137/86; PULSE 99; RESP 18; TEMP 36.7; O2SAT 100
[2025-01-03 07:41] LABS: Hematocrit 42.2 % (42.0-52.0); Hemoglobin 14.3 g/dL (14.0-18.0); Immature Granulocyte Percent A 0.4 % (0-0.5); Lymphocytes Absolute Auto 1.13 K/mm3 (0.9-3.2); Mean Corpuscular HGB Conc 33.9 g/dl (32-36); Mean Corpuscular Hemoglobin 31.0 pg (26-34); Mean Corpuscular Volume 91.3 fl (80-100); Nucleated Red Blood Cells Absolute Auto 0.000 K/mm3 (0.0-0.012); Nucleated Red Blood Cells Perc 0.0 % (0.0-0.2); Platelet Count Result 283 k/mm3 (150-375); Red Blood Count 4.62 M/mm3 (4.6-6.20); White Blood Count 12.0 K/mm3 (4.5-10.0)
[2025-01-03 08:09] LABS: Anion Gap 7 mmol/L (4-12); Blood Urea Nitrogen 13 mg/dL (9-20); Calcium 8.6 mg/dL (8.4-10.2); Carbon Dioxide 25 mmol/L (22-30); Chloride 105 mmol/L (98-107); Estimated CRCL calculation 120 ml/min; Estimated Glomerular Filt Rate > 60; Glucose 97 mg/dL (65-110); Lipase 88 U/L (23-300); Potassium 4.1 mmol/L (3.4-5.0); Sodium 137 mmol/L (137-145)
[2025-01-03] MEDS: DOCUSATE SODIUM 100 MG CAPSULE PO (10:22)
[2025-01-03] MEDS: HYDROcodone/acetaminophen (*CRX) 5-325 MG TABLET 1 TAB PO ×2 (10:23→15:02)
--- NOTE | 2025-01-03 12:54 | P.CONGS_ITS ---
Assessment and Plan Assessment and plan (1) Diverticulitis: Code(s): K57.92 - Diverticulitis of intestine, part unspecified, without perforation or abscess without bleeding Status: Acute Assessment and Plan: Patient with known history of diverticulitis presented to the ER yesterday with 12 days of lower abdominal suprapubic pain. When pain 1st started he presented to his PCP who prescribed him Cipro and Flagyl. He states that he felt like he was getting better, but then started to feel worse. He had some leftover Cipro that he took, but still was not able to get any relief. Thus, he presented to the ED. upon admission, vital signs were stable. Labs revealed leukocytosis. CT demonstrated wall thickening and surrounding inflammatory stranding at mid sigmoid colon. Radiology report also lists colon cancer in the differential. However, patient had a colonoscopy a year ago that was benign for any masses or suspicious lesions. One polyp removed. * No surgical intervention necessary, as there is no diverticular perforation or abscess present. Antibiotics switched to Zosyn for broader coverage. * Colon cancer unlikely, as patient had benign colonoscopy last year. Continue to treat conservatively with IV antibiotics. Okay to resume clear liquid diet. Plan Discussed patient's case and plan of care with Dr. Martinez. History of Present Illness Consult details Consult date: 01/03/25 Reason for consult: other (diverticulitis versus colon cancer and antibiotic management.) Requesting physician: Michelle Menard APRN Narrative: Patient is a 44-year-old male with personal and family history of diverticulitis who we have been asked to see in surgical consultation for diverticulitis versus colon cancer and antibiotic management. Patient states that lower abdominal pain first started 12 days ago. He states this felt similar to previous episode of diverticulitis. He contacted his PCP who prescribed him Cipro and Flagyl. Completed this course and felt like he was getting better, but eventually started to feel worse again. He took some leftover Cipro that he had in the cabinet, but still was not able to get any relief so he eventually presented to the ED yesterday. Patient's 1st and only other episode of diverticulitis was in July of 2023. At this time there was no perforation or abscess identified. Patient states that he took a [place] on the way to the emergency department. Upon arrival, vital signs are stable. Labs revealed a white blood cell count of 12.4. A CT of the abdomen pelvis demonstrated prominent wall thickening and surrounding inflammatory stranding at the mid sigmoid colon most suspicious for uncomplicated diverticulitis. Differential would include colon cancer. Patient did just have colonoscopy on 01/08/2024. A few diverticula were present, but not actively bleeding. A single 7 mm polyp was excised. A few internal hemorrhoids food. No other abnormalities present. Today, patient's white blood cell count is down to 12.0. He endorses lower abdominal pelvic pain. He also states he feels a constant pain that feels like he needs to have a bowel movement. Reportedly, he has been having bowel movements. Denies any previous abdominal surgeries. No urinary symptoms. [facility] Past Medical History Medical History History of diverticulitis of colon Obesity Family History Family History Father Throat cancer Mother Breast cancer Social History Social History Smoking packs per day: 1 Smoking cigarettes per day: 20.0 Smoking status: Current every day smoker Tobacco type: e-cigarettes/vaping Smokeless tobacco user: chewing tobacco Alcohol intake: never Substance use: never Substance use type: does not use Do You Feel Safe in your Home?: Yes Lack of Transportation: No Lack of Food: Never True Current Housing: I Have Housing Concerned About Future Housing: No Difficulty Paying Gas/Electric Bills: No Difficulty Paying for Meds: No Currently Unemployed: No Education: Trade/Vocational Certificate Difficulty w/ Childcare or Family Care: No Living arrangements: with family Occupation/Education: occupation Gender identity (if verbalized by the patient): Male Sexual Orientation (if Verbalized by the Patient): Straight or Heterosexual Spiritual care concerns: No Meds Home Medications and Allergies Home Medications ?Medication ?Instructions ?Recorded ?Confirmed ?Type No Home Medications 01/02/25 01/02/25 H istory Allergies Allergy/AdvReac Type Severity Reaction Status Date / Time No Known Allergies Allergy Verified 01/02/25 06:56 Vital Signs Vital Signs - 24 hr 01/02/25 14:08 01/02/25 15:00 01/02/25 20:00 Temperature 97.2 F L Pulse Rate 85 Respiratory Rate 20 Blood Pressure 116/69 Pulse Oximetry 97 Oxygen Delivery Room Air Room Air 01/02/25 21:39 01/03/25 06:00 01/03/25 08:00 Temperature 99.6 F 98.1 F Pulse Rate 87 99 Respiratory Rate 20 18 Blood Pressure 121/73 137/86 Pulse Oximetry 97 100 Oxygen Delivery Room Air Exam 2 Const: General: comfortable and no acute distress Eyes: General: appearance normal, both eyes and all related structures Neck: Neck: supple and no JVD Resp: Effort & Inspection: normal respiratory effort Cardio: Rate: regular rate GI: GI Palp: Yes Soft to palpation and Yes Tenderness to palpation present (GI) (Suprapubic) Auscultation: normal bowel sounds Skin: General skin exam: normal color and no rashes or lesions noted Neuro: Speech: normal speech Extrem: General: normal to inspection Psych: Mental Status: mental status grossly normal Results Labs 01/03/25 07:16 01/03/25 07:16 Labs: Abnormal lab results 01/02/25 01/03/25 Range/Units 12:30 07:16 WBC 12.0 H (4.5-10.0) K/mm3 Neut % (Auto) 78.8 H (45.5-73.1) % Lymph % (Auto) 9.4 L (18.3-44.2) % [place] % (Auto) 9.4 H (2.6-8.5) % [place] # (Auto) 1.1 H (0.1-0.6) K/mm3 Abs Immat Gran (auto) 0.05 H (0.00-0.031) K/mm3 Absolute Neuts (auto) 9.4 H (1.3-6.7) K/mm3 Lactic Acid 0.6 L (0.7-2.0) mmol/L C-Reactive Protein 4.7 H (<1.0) mg/dL Diabetes panel 01/03/25 Range/Units 07:16 Sodium 137 (137-145) mmol/L Potassium 4.1 (3.4-5.0) mmol/L Chloride 105 (98-107) mmol/L Carbon Dioxide 25 (22-30) mmol/L BUN 13 (9-20) mg/dL Creatinine 0.89 (0.7-1.3) mg/dL Glucose 97 (65-110) mg/dL Calcium 8.6 (8.4-10.2) mg/dL Calcium panel 01/03/25 Range/Units 07:16 Calcium 8.6 (8.4-10.2) mg/dL Pituitary panel 01/03/25 Range/Units 07:16 Sodium 137 (137-145) mmol/L Potassium 4.1 (3.4-5.0) mmol/L Chloride 105 (98-107) mmol/L Carbon Dioxide 25 (22-30) mmol/L BUN 13 (9-20) mg/dL Creatinine 0.89 (0.7-1.3) mg/dL Glucose 97 (65-110) mg/dL Calcium 8.6 (8.4-10.2) mg/dL Adrenal panel 01/03/25 Range/Units 07:16 Sodium 137 (137-145) mmol/L Potassium 4.1 (3.4-5.0) mmol/L Chloride 105 (98-107) mmol/L Carbon Dioxide 25 (22-30) mmol/L BUN 13 (9-20) mg/dL Creatinine 0.89 (0.7-1.3) mg/dL Glucose 97 (65-110) mg/dL Calcium 8.6 (8.4-10.2) mg/dL All other labs normal.
[2025-01-03] MEDS: PIPERACILLIN/TAZOBACTAM SOD 3.375 GM in SODIUM CHLORIDE 0.9% IV 50 ML 100 ML IVPB ×2 (13:31→20:45)
--- NOTE | 2025-01-03 14:19 | P.PNIM_ITS ---
Progress Note: A&P Assessment and Plan (1) Diverticulitis: Code(s): K57.92 - Diverticulitis of intestine, part unspecified, without perforation or abscess without bleeding Status: Acute Assessment and Plan: CT showing Similar appearance of prominent wall thickening and surrounding inflammatory stranding at the mid sigmoid colon most suspicious for radiographically uncomplicated diverticulitis. Differential would however also include colon cancer and if not recently performed would recommend follow-up colonoscopy when clinically improved. Cholelithiasis. Patient had failed 10 days of oral antibiotic treatment * Surgery consulted * Advance diet as tolerated currently on clear liquid * Pain management with oral Ronan * Continue IV fluids * Will transition from Flagyl/Rocephin to Zosyn IV * Patient follows with Dr. Miles outpatient last colonoscopy 01/17/2025: Showed diverticulosis and polyp removal * Continue trend CBC * Will need to follow-up outpatient with GI no surgical intervention indicated at this time Plan Code status: Full code per patient DVT prophylaxis: SCD Stress ulcer prophylaxis: NA PT/OT notes: Ambulatory Disposition: Patient will continue admission for further treatment of diverticulitis currently on IV Zosyn and pain management advance diet as tolerated. Patient ambulatory on own plan will be to return discharge. Time Spent With Patient Time with patient: 15 - 25 minutes Subjective Date/time seen: 01/03/25 14:19 Interval history: Patient is a 44-year-old male who admitted for further evaluation and treatment diverticulitis with failed outpatient therapy. 01/03/2025: Assumed Care Patient reported mild improvement to symptoms and is tolerating clear liquid diet. Patient still with ABD tenderness, passing gas and small BM reported. Review of Systems Review of Systems: 12 systems were reviewed and are negativ e except for as per HPI. All systems reviewed & are unremarkable except as noted in HPI and below Exam Const: General: comfortable and no acute distress HENMT: Mouth: Yes moist mucous membranes Eyes: General: appearance normal, both eyes and all related structures Pupils: Equal, round and reactive pupils present Neck: Neck: supple and no JVD Resp: Effort & Inspection: normal respiratory effort Auscultation: clear to auscultation bilaterally Cardio: Rate: regular rate Rhythm: regular rhythm GI: GI Palp: Yes Soft to palpation and Yes Tenderness to palpation present (GI) Auscultation: normal bowel sounds Skin: General skin exam: normal color and no rashes or lesions noted Wounds: no wounds Neuro: General: gait normal Speech: normal speech Motor exam (neuro): 5/5 motor strength present throughout Sensory Exam: normal sensation Extrem: General: normal to inspection Psych: Mental Status: mental status grossly normal Affect: normal affect Objective Data Vital Signs Vital Signs: Vital Signs - 24 hr 01/02/25 15:00 01/02/25 20:00 01/02/25 21:39 Temperature 99.6 F Pulse Rate 87 Respiratory Rate 20 Blood Pressure 121/73 Pulse Oximetry 97 Oxygen Delivery Room Air Room Air 01/03/25 06:00 01/03/25 08:00 Temperature 98.1 F Pulse Rate 99 Respiratory Rate 18 Blood Pressure 137/86 Pulse Oximetry 100 Oxygen Delivery Room Air Intake/Output Intake/Output: Intake & Output 12/31/24 01/01/25 01/02/25 01/03/25 23:59 23:59 23:59 23:59 Intake Total 2980 2830 Balance 2980 2830 Meds/Results Medications: Active Medications Generic Name Dose Route Start Last Admin Trade Name Freq PRN Reason Stop Dose Admin Acetaminophen 650 mg 01/02/25 14:04 Acetaminophen 325 Mg Tablet PO Q4H PRN Mild Pain (1-3) or Fever Hydrocodone Bitart/Acetaminophen 1 tab 01/02/25 14:04 01/03/25 10:23 Hydrocodone/Acetaminophen (*Crx) 5-325 Mg Tablet PO 1 tab Q4H PRN Administration Moderate Pain (4-6) Al Hydrox/Mg Hydrox/Simethicone 30 ml 01/02/25 23:55 01/03/25 00:02 Mag Hydrox/Al Hydrox/Simeth 30 Ml Udc PO 30 ml Q6H PRN Administration Indigestion Docusate Sodium 100 mg 01/03/25 09:00 01/03/25 10:22 Docusate Sodium 100 Mg Capsule PO 100 mg DAILY SHASHI Administration Lactated Ringer's 1,000 mls @ 200 mls/hr 01/02/25 14:05 01/03/25 11:10 Lr - Lactated Ringers Iv IV CONT Not Given .Q5H SHASHI Piperacillin Sod/Tazobactam 50 mls @ 100 mls/hr 01/03/25 14:00 01/03/25 14:01 Sod 3.375 gm/ Sodium Chloride IVPB Infused Q6H SHASHI Infusion Ketorolac Tromethamine 15 mg 01/03/25 00:00 01/03/25 11:25 Ketorolac 15 Mg/Ml Vial (*Bkc) IV PUSH 15 mg Q6HR SHASHI Administration Morphine Sulfate 2 mg 01/02/25 14:08 01/02/25 20:20 Morphine Sulfate (*Crx) 4 Mg/Ml Inj IV PUSH 2 mg Q4H PRN Administration Pain Rated 7-10 Ondansetron HCl 4 mg 01/03/25 08:58 Ondansetron Inj 4 Mg/2 Ml Vial IV PUSH Q6H PRN Nausea And Vomiting Senna/Docusate Sodium 1 tab 01/02/25 21:00 01/02/25 20:19 Senna/Docusate Sodium Tablet PO 1 tab HS SHASHI Administration Radiology Results: ITS Impressions Abdomen/Pelvis CT 01/02/25 11:49 IMPRESSION: 1. Similar appearance of prominent wall thickening and surrounding inflammatory stranding at the mid sigmoid colon most suspicious for radiographically uncomplicated diverticulitis. Differential would however also include colon cancer and if not recently performed would recommend follow-up colonoscopy when clinically improved. 2. Cholelithiasis. Labs Labs: Laboratory Results - last 24 hr 01/03/25 07:16 WBC 12.0 H RBC 4.62 Hgb 14.3 Hct 42.2 MCV 91.3 MCH 31.0 MCHC 33.9 RDW 12.4 Plt Count 283 MPV 9.0 Immature Gran % (Auto) 0.4 Neut % (Auto) 78.8 H Lymph % (Auto) 9.4 L [place] % (Auto) 9.4 H Eos % (Auto) 1.3 Baso % (Auto) 0.7 Lymph # (Auto) 1.13 [place] # (Auto) 1.1 H Eos # (Auto) 0.2 Baso # (Auto) 0.1 Abs Immat Gran (auto) 0.05 H Absolute Neuts (auto) 9.4 H Absolute Nucleated RBC 0.000 Nucleated RBC % 0.0 Sodium 137 Potassium 4.1 Chloride 105 Carbon Dioxide 25 Anion Gap 7 BUN 13 Creatinine 0.89 Estim Creat Clear Calc 120 Estimated GFR > 60 Glucose 97 Calcium 8.6 Lipase 88 Quality VTE Prophylaxis VTE prophylaxis: mechanical ordered -Patient's previous records reviewed on admission -ER notes reviewed in detail on admission -discussed all findings and current treatment plan with patient/Family/POA -Consultations reviewed for recommendations -Patient's disposition for safe discharge discussed with entertainment dancer -radiology imaging, EKG and test results I have personally reviewed and interpreted unless otherwise specified Dictation performed by [employer] direct speech recognition software, therefore drill foreman variants and typographical errors may occur. Hospitalist [facility] Advance Care Plan I have confirmed that the patient's Advanced Care Plan is present, code status is documented, or surrogate decision maker is listed in patient medical record.: Yes Medication Reconciliation I have utilized all available resources to obtain, update and review the patients current medications (includes all prescriptions, OTC, herbals, cannabis, and nutritional supplements).: Yes The patient is not eligible for med reconciliation; the patient is in a emergent medical situation where delaying treatment would jeopardize the patients health.: No
[2025-01-03 15:08] VITALS: TEMP 37.2
[2025-01-03 15:52] VITALS: BP 129/69; PULSE 87; RESP 22; TEMP 38; O2SAT 87
[2025-01-03 19:50] VITALS: BP 117/62; PULSE 90; RESP 18; TEMP 36.1; O2SAT 98
[2025-01-03] MEDS: SENNA/DOCUSATE SODIUM TABLET 1 TAB PO (20:48)
[2025-01-04] MEDS: PIPERACILLIN/TAZOBACTAM SOD 3.375 GM in SODIUM CHLORIDE 0.9% IV 50 ML 100 ML IVPB ×2 (02:47→08:58)
[2025-01-04 04:25] VITALS: BP 135/72; PULSE 78; RESP 20; TEMP 35.8; O2SAT 100
[2025-01-04] MEDS: LACTATED RINGERS 1,000 ML 200 ML IV CONT (04:51)
[2025-01-04] MEDS: KETOROLAC 15 MG/ML VIAL (*BKC) IV PUSH ×2 (05:40→12:22)
[2025-01-04 06:23] LABS: Hematocrit 38.2 % (42.0-52.0); Hemoglobin 12.7 g/dL (14.0-18.0); Mean Corpuscular HGB Conc 33.2 g/dl (32-36); Mean Corpuscular Hemoglobin 30.8 pg (26-34); Mean Corpuscular Volume 92.5 fl (80-100); Platelet Count Result 254 k/mm3 (150-375); Red Blood Count 4.13 M/mm3 (4.6-6.20); White Blood Count 7.9 K/mm3 (4.5-10.0)
[2025-01-04 06:53] LABS: Alanine Aminotransferase 18 U/L (6-50); Albumin Level 3.2 g/dL (3.5-5.1); Alkaline Phosphatase 43 U/L (38-126); Anion Gap 4 mmol/L (4-12); Aspartate Amino Transferase 24 U/L (17-59); Bilirubin,Total 0.4 mg/dL (0.2-1.3); Blood Urea Nitrogen 11 mg/dL (9-20); Calcium 8.2 mg/dL (8.4-10.2); Carbon Dioxide 27 mmol/L (22-30); Chloride 105 mmol/L (98-107); Estimated CRCL calculation 116 ml/min; Estimated Glomerular Filt Rate > 60; Glucose 97 mg/dL (65-110); Magnesium 2.3 mg/dL (1.6-2.3); Potassium 3.9 mmol/L (3.4-5.0); Sodium 136 mmol/L (137-145); Total Protein 6.0 g/dL (6.3-8.2)
[2025-01-04] MEDS: DOCUSATE SODIUM 100 MG CAPSULE PO (08:59)
--- NOTE | 2025-01-04 13:32 | P.DS_ITS ---
DS: Admitting Diagnosis Discharge Date 01/04/2025 Admitting Diagnosis Diverticulitis DS: Discharge Diagnosis Discharge Diagnosis (1) Diverticulitis: Code(s): K57.92 - Diverticulitis of intestine, part unspecified, without perforation or abscess without bleeding Status: Acute DS: Summary Hospital Course Reason for hospitalization: Diverticulitis Hospital Course: Admission: Patient was a 44-year-old male with history of diverticulitis presents the hospital with acute abdominal pain. He states that he went to urgent care about 11 days ago and was started on Cipro and Flagyl. He states that he is now feeling worse having difficulties passing stool, nauseated and acute pain. Patient denies chronic alcohol use. Patient states that the pain is in his lower abdomen. Denied upper abdominal pain. Patient states that he has a family history of diverticulitis. He states that he was taking his antibiotics as directed. He denies other complaints denies fevers chills. ED shows leukocytosis at 12.4, lactic acid of 0.6 CRP of 4.7, lipase of 1543, abdomen pelvis CT shows Similar appearance of prominent wall thickening and surrounding inflammatory stranding at the mid sigmoid colon most suspicious for radiographically uncomplicated diverticulitis. Differential would however also include colon cancer and if not recently performed would recommend follow-up colonoscopy when clinically improved. Hospital Course: Patient was admitted to the medical unit for further treatment of diverticulitis first started on IV ceftriaxone and flagyl and transitioned to IV Zosyn. Patient was placed on NPO diet then advanced as tolerated from clear liquid to low fiber. Leukocytosis improved and he was able to tolerate low fiber diet with minimal pain. Patient had been seen by surgery who agreed with treatment plan and no need for surgical intervention since no abscess or perforation. Patient was transitioned to Augmentin at discharge and instructed to continue low fiber diet with small frequent meals as tolerated and increase water intake. Patient was discharged to home and will follow-up with his GI physician as scheduled. Status at Discharge Functional status at discharge: independent ambulation Time Spent with Patient Time attestation: Total time spent providing and/or coordinating discharge services: Time spent: Greater than 30 minutes Exam Const: General: comfortable and no acute distress HENMT: Mouth: Yes moist mucous membranes Eyes: General: appearance normal, both eyes and all related structures Pupils: Equal, round and reactive pupils present Neck: Neck: supple and no JVD Resp: Effort & Inspection: normal respiratory effort Auscultation: clear to auscultation bilaterally Cardio: Rate: regular rate Rhythm: regular rhythm GI: GI Palp: Yes Soft to palpation Auscultation: normal bowel sounds Skin: General skin exam: normal color and no rashes or lesions noted Wounds: no wounds Neuro: General: gait normal Cranial nerves: Yes Equal, round and reactive pupils present Speech: normal speech Motor exam (neuro): 5/5 motor strength present throughout Sensory Exam: normal sensation Extrem: General: normal to inspection Psych: Mental Status: mental status grossly normal Affect: normal affect DS: Data Data Completed and Pending Labs on day of discharge: Labs from last 24 hours 01/04/25 05:50 WBC 7.9 RBC 4.13 L Hgb 12.7 L Hct 38.2 L MCV 92.5 MCH 30.8 MCHC 33.2 RDW 12.4 Plt Count 254 MPV 9.0 Sodium 136 L Potassium 3.9 Chloride 105 Carbon Dioxide 27 Anion Gap 4 BUN 11 Creatinine 0.92 Estim Creat Clear Calc 116 Estimated GFR > 60 Glucose 97 Calcium 8.2 L Magnesium 2.3 Total Bilirubin 0.4 AST 24 ALT 18 Alkaline Phosphatase 43 Total Protein 6.0 L Albumin 3.2 L Imaging Radiologist's impression: Radiology Results: ITS Impressions Abdomen/Pelvis CT 01/02/25 11:49 IMPRESSION: 1. Similar appearance of prominent wall thickening and surrounding inflammatory stranding at the mid sigmoid colon most suspicious for radiographically uncomplicated diverticulitis. Differential would however also include colon cancer and if not recently performed would recommend follow-up colonoscopy when clinically improved. 2. Cholelithiasis. Discharge Plan Discharge Attending physician on discharge: Eric Pickens Consulting providers: Fallon Hernández; Mason Martinez Discharging Clinician: Fallon Hernández Anticipated Discharge Date/Time: 01/04/25 13:26 Patient Disposition: Home Activity: may shower and as tolerated Diet: low fiber and other - see discharge instructions Discharge Instructions: 1). Diverticulitis * I have ordered Augmentin PO for antibiotic coverage please complete as indicated * Continue with low fiber diet can advance as tolerated * recommend 5-6 small meals daily as tolerated * Avoid caffeine and encourage increasing water intake * Follow-up with GI as scheduled * If pain returns and worsens seek medical attention * Avoid popcorn, seeds or nuts How can you care for yourself at home? ? Keep track of any new symptoms or changes in your symptoms. ? Rest until you feel better. ? Be safe with medicines. Take your medicines exactly as prescribed. Call your doctor if you think you are having a problem with your medicine. ? Do not drive after taking a prescription pain medicine. ? Ensure to follow-up with primary care physician as indicated and provide updated medication list provided to you at discharge. When should you call for help? Call 911 anytime you think you may need emergency care. For example, call if: ? You passed out (lost consciousness). Call your doctor now or seek immediate medical care if: ? You have new symptoms like fever, difficulty breathing, Chest pain, vomiting, or rash. ? You have new or different pain. ? You are confused and are having trouble thinking clearly. ? Your symptoms are getting worse. Watch closely for changes in your health, and be sure to contact your doctor if: ? You do not get better as expected. Patient Instructions: Antibiotic Form, Diverticulitis (DC) Patient Language: Upper Sorbian Stand Alone Forms: General Discharge Information Follow-up/Referrals: Amaury Muro MD [Primary Care Provider, [facility]] - 3 Weeks Discharge Medications: New amoxicillin-pot clavulanate 875-125 mg tablet 1 tablet PO Q12H Qty: 10 0RF ketorolac 10 mg tablet 10 mg PO Q8H PRN (Reason: pain) Qty: 15 0RF Rx Instructions: maximum total duration of 5 days from all oral, intranasal, or parenteral formulations Date of admission: 01/02/25 12:26 Primary Care Provider: Amaury Muro Admitting Provider: Eric Pickens Attending physician on admission: Eric Pickens Condition: Stable Quality VTE Prophylaxis VTE prophylaxis: mechanical ordered -Patient's previous records reviewed on admission -ER notes reviewed in detail on admission -discussed all findings and current treatment plan with patient/Family/POA -Consultations reviewed for recommendations -Patient's disposition for safe discharge discussed with returned case inspector -radiology imaging, EKG and test results I have personally reviewed and interpreted unless otherwise specified Dictation performed by JULIO Hughes direct speech recognition software, richelle title checker variants and typographical errors may occur. Hospitalist MIPS Heart Failure (Exclusion) Patient has history of Heart Transplant or Left Ventricular Assistive Device?: No IF YES, STOP HERE Heart Failure (Qualifier) Patient has current or prior documentation of LVEF less than or equal to 40%, or mod/servere depressed LVSF?: No IF NO, STOP HERE
== END 2025-01-04 13:44 | disposition home or self-care (01) | DRG 392 ==
LOC: ANHED 12:26 → ANH3MEDSUR 13:02
PROVIDERS: Emergency Medicine; Nurse Practitioner Gerontology; Admitting Provider Family Medicine; Emergency Provider Nurse Practitioner Family; PCP Family Medicine; Visit Provider Nurse Practitioner Family
DX: K57.32 Diverticulitis of large intestine without perforation or abscess without bleeding (principal); Z68.41 Body mass index [BMI] 40.0-44.9, adult; R74.8 Abnormal levels of other serum enzymes; E86.0 Dehydration; E66.9 Obesity, unspecified
CPT/HCPCS: 36415; 74177; 80048; 80053; 81001; 83605; 83690; 83735; 85025; 85027; 85610; 85730; 86140; 87040; 96361; 96374; 96375; 99285; A9270; J0696; J1836; J1885; J2270; J2405; J2543; J7030; J7120; Q9967